=== PATIENT | female | born 1985 | race African-American/Black ===

== ENCOUNTER 2020-01-24 | Emergency (ER) | payer MEDICAID ==
[~2020-01-24] MED LIST: AMOXICILLIN500 MG OR; AMOXICILLIN500 MG PO; AMOXICILLIN875 MG OR; AVELOX400 MG IV; BACTRIM DS1 TAB PO; CIPRO500 MG PO; CLARITIN10 M1 PO; CLARITIN10 MG PO; CLINDAMYCIN HC150 MG PO; CLINDAMYCIN11 EX; DOXEPIN HCL100 MG PO; DOXYCYC MONO100 MG OR; DOXYCYCL HYC100 MG OR; DOXYCYCL HYC100 MG PO; KEFLEX500 MG PO; KETOROLAC60 MG/2 ML IJ; LORTAB 10 PO; LORTAB 7.5 PO; LORTAB5 PO; MEDDOSEPAK PO; NO; NO HOME MEDS; RIFAMPIN300 MG PO; ROBITUSSIN AC10 ML OR; ROCEPHIN 1 GM1 GM IM; SILVADENE1 % EX; STERAPRED DS10 MG OR; TRAMADOL HCL50 MG PO; TRIMOX500 MG PO; ZOFRAN ODT4 MG PO; ZPAK PO
[2020-01-24 10:44] LABS: HEMATOCRIT 39.7 % (37.0-47.0); HEMOGLOBIN 13.1 g/dl (12.0-16.0); IMMATURE GRANULOCYTES 0.3 % (0.0-5.0); MEAN CORPUSCULAR HGB 29.4 pG CALC (26.0-32.0); NEUT# 4.2 thou/uL (2.00-7.15); RED BLOOD COUNT 4.46 mill/uL (4.20-5.60); RED CELL DISTRI WIDTH 12.3 % (11.5-15.5)
== END 2020-01-24 12:15 | disposition home or self-care (01) ==
PROVIDERS: Family Medicine
DX: J06.9 Acute upper respiratory infection, unspecified (principal)

== ENCOUNTER 2020-11-15 03:20 | Emergency (ER) | payer MEDICAID ==
[~2020-11-15] VITALS: Ht 162.6 cm; Wt 74.0 kg
[2020-11-15 05:58] LABS: HEMATOCRIT 39.1 % (37.0-47.0); HEMOGLOBIN 12.8 g/dl (12.0-16.0); IMMATURE GRANULOCYTES 0.4 % (0.0-5.0); MEAN CELL VOLUME 89.5 fL CALC (80.0-100.0); MEAN CORPUSCULAR HGB 29.3 pG CALC (26.0-32.0); MEAN CORPUSCULAR HGB CONC 32.7 g/dL CAL (32.0-36.0); NEUT# 3.18 thou/uL (2.00-7.15); RED BLOOD COUNT 4.37 mill/uL (4.20-5.60); RED CELL DISTRI WIDTH 12.3 % (11.5-15.5)
[2020-11-15 06:00] LABS: URINE BILIRUBIN - DIPSTICK NEGATIVE (NEGATIVE); URINE BLOOD DIPSTICK MODERATE (NEGATIVE); URINE COLOR YELLOW; URINE GLUCOSE - DIPSTICK NEGATIVE (NEGATIVE); URINE KETONE NEGATIVE (NEGATIVE); URINE NITRITE - DIPSTICK NEGATIVE (Negative); URINE PROTEIN - DIPSTICK NEGATIVE (NEG-TRACE); URINE SPECIFIC GRAVITY 1.025; URINE UROBILINOGEN - DIPSTICK 0.2 E.U./dL (0.2)
[2020-11-15 06:12] LABS: URINE LEUK ESTERASE NEGATIVE (NEGATIVE)
[2020-11-15 06:13] LABS: URINE EPITHELIAL CELLS MODERATE EPI/hpf (0-FEW)
[2020-11-15 06:14] LABS: URINE BACTERIA MODERATE hpf
[2020-11-15 06:34] LABS: ALBUMIN 4.2 g/dL (3.2-5.0); ALKALINE PHOSPHATASE 70 u/l (38-126); AMYLASE 94 u/l (30-110); ANION GAP 11 (6-22 (CALC)); BILIRUBIN, TOTAL 0.6 mg/dL (0.0-1.4); BUN 11 mg/dL (7-17); BUN/CREATININE RATIO 15 (12-20 (CALC)); CARBON DIOXIDE 26 mmol/l (22-30); CHLORIDE 104 mmol/l (95-108); CREATININE 0.7 mg/dL (0.5-1.0); GFR > 60 ML/MIN (>=60 (CALC)); GFR FOR AFR.AMER. > 60 ML/MIN (>=60 (CALC)); LIPASE 83 u/l (23-300); SGOT/AST 31 u/l (14-36); SODIUM 137 mmol/l (137-146); TOTAL PROTEIN 7.5 g/dL (6.3-8.2)
[2020-11-15] MEDS ORDERED: DICYCLOMINE20 MG PO (08:27)
[2020-11-15] MEDS ORDERED: ZOFRAN4 MG/TAB PO (08:27)
[2020-11-15] MEDS ORDERED: ACID REDUCER20 MG PO (08:27)
[2020-11-15 08:48] VITALS: BP 147/77
== END 2020-11-15 08:57 | disposition home or self-care (01) ==
LOC: ED 03:20
PROVIDERS: Emergency Medicine
DX: R10.13 Epigastric pain (principal)
CPT/HCPCS: Q9967; S0164